=== PATIENT | female | born 1960 | race Caucasian/White ===

== ENCOUNTER 2017-06-24 09:16 | Outpatient (RCR) | payer MEDICARE | END 2017-07-03 | LOC: OT 09:16 | PROVIDERS: ATTEND Surgery Surgery of the Hand | DX: M18.11 Unilateral primary osteoarthritis of first carpometacarpal joint, right hand (principal); M79.641 Pain in right hand | CPT/HCPCS: 97139; G8987; G8988; G8989; L3808 ==